=== PATIENT | male | born 1955 ===

== ENCOUNTER 2017-03-02 12:56 | Outpatient (CLI) | payer MEDICARE, MEDICAID ==
--- NOTE | 2017-03-02 16:41 | Diagnostic Imaging Report ---
Clinical Indication: Abdominal pain and jaundice Technique: Patient given oral contrast. IV administration nonionic contrast. Multiphasic spiral acquisitions obtained through the abdomen and pelvis. Multiplanar reconstructions were generated. Total dose length product 2710 mGycm. CTDIvol(s) 8, 105, 18, 19, 19 mGy. Dose reduction achieved using automated exposure control Comparison: None Findings: The liver is normal in size and contour. No mass or other abnormality demonstrated. The gallbladder is nondistended. The bile ducts are normal in caliber. At the level of the ampulla, there is a small fat attenuation 7 mm lesion adjacent to or within the duodenal lumen, consistent with small lipoma. No pancreatic mass. There are a few prominent peripancreatic lymph nodes, largest measuring 2.6 cm long axis dimension. There is a tiny capsular fluid collection in the superolateral aspect of the spleen, which measures about 2 cm in length and 3 mm in thickness. This is bordered by some punctate calcifications. The adrenals, kidneys, renal collecting systems, are unremarkable. Bilateral hip prostheses throughout streak artifact which obscure much of the pelvis and could obscure pathology. The bladder is grossly unremarkable. No gross pelvic mass or adenopathy. Linear atelectasis and/or scarring is seen at the right lung base. Lung bases are otherwise clear. There are old healed fracture deformities of the right ninth and 10th ribs or old ununited fracture deformities of the left 10th and 11th rib which demonstrate smooth clean margins, and a united healed fracture deformity of the left lateral ninth rib. There is mild lumbar scoliotic deformity and fairly extensive degenerative lower lumbar spondylosis. The appendix is normal. There is colonic diverticulosis. No evidence of diverticulitis. No small bowel distention or small bowel wall thickening. There is a tiny fat-containing umbilical hernia. The distal esophagus, stomach are unremarkable. Impression: Normal liver and normal bile ducts. No findings to suggest etiology of stated clinical history of jaundice demonstrated Nonspecific prominent peripancreatic lymph nodes Tiny subcapsular fluid collection in the spleen. Etiology/significance uncertain, but suspect chronic, given the presence of adjacent calcifications Colonic diverticulosis. No evidence of diverticulitis Ununited left 10th and 11th rib fracture deformities. Relatively smooth clean margins raises possibility these could be iatrogenic. Correlate with surgical history. Old multiple healed fracture deformities, as described above Other findings as noted, including tiny fat-containing umbilical hernia, lumbar scoliotic deformity, degenerative lumbar spondylosis, bilateral hip prostheses The CT scanner at [facility] is accredited by the [employer] and the scans are performed using protocols designed to limit radiation exposure to as low as reasonably achievable to attain images of sufficient resolution adequate for diagnostic evaluation.
== END 2017-03-02 14:56 | disposition home or self-care (01) ==
LOC: CAT 12:56
DX: R17 Unspecified jaundice (principal); R10.9 Unspecified abdominal pain; K57.90 Diverticulosis of intestine, part unspecified, without perforation or abscess without bleeding
CPT/HCPCS: 74177; Q9967

== ENCOUNTER 2018-04-12 13:41 | Outpatient (CLI) | payer MEDICARE, OTHER ==
--- NOTE | 2018-04-12 14:34 | Diagnostic Imaging Report ---
Indication: Osteoporosis Technique: 10 mm thick slices obtained through the L2, L3, and L4 vertebral bodies. Cortical and trabecular regions of interest were drawn. The average trabecular bone mineral density was calculated. Total dose length product 34.47 mGycm. CTDIvol(s) 4 x 3 mGy. Dose reduction achieved using automated exposure control Comparison: 01/24/2013 Findings: The calculated bone mineral density is 116.5 mg ca-FERREIRA/ml. The T score is -2.2. This indicates the patient's bone mineral density is 2.2 standard deviations below that of normal 20-year-old males. The Z score is 0.71. This indicates the patient's bone mineral density is 0.71 standard deviations above that of age-matched controls We are compared to prior study, the bone mineral density has improved considerably from the previous value of 79.7 Impression: Patient mineral density is 10-25% below that of normal 20-year-old males. Patient is considered osteopenic by WHO criteria. Insufficiency fracture risk is moderate Note improvement of bone mineral density since prior study of 01/24/[address] scanner at [facility] is accredited by the [employer] and the scans are performed using protocols designed to limit radiation exposure to as low as reasonably achievable to attain images of sufficient resolution adequate for diagnostic evaluation.
== END 2018-04-12 15:41 | disposition home or self-care (01) ==
LOC: CAT 13:41
DX: M81.0 Age-related osteoporosis without current pathological fracture (principal)
CPT/HCPCS: 77078